=== PATIENT | male | born 1940 | race Hispanic/Latino ===

== ENCOUNTER 2016-07-20 10:51 | Day surgery (SDC) | payer MEDICARE, OTHER ==
[2016-07-20] MEDS ORDERED: NEOFRIN OS ONE (11:36)
[2016-07-20] MEDS ORDERED: MYDRIACYL 1% OS ONE (11:36)
[2016-07-20] MEDS ORDERED: IOPIDINE OS ONE (11:36)
[2016-07-20 12:27] VITALS: BP 126/66
== END 2016-07-20 12:36 | disposition home or self-care (01) ==
LOC: OR 10:51
PROVIDERS: ATTEND Specialist
DX: E11.36 Type 2 diabetes mellitus with diabetic cataract (principal); I25.10 Atherosclerotic heart disease of native coronary artery without angina pectoris; I48.91 Unspecified atrial fibrillation; I10 Essential (primary) hypertension; M19.90 Unspecified osteoarthritis, unspecified site; G47.33 Obstructive sleep apnea (adult) (pediatric); E03.9 Hypothyroidism, unspecified; Z95.5 Presence of coronary angioplasty implant and graft; Z87.891 Personal history of nicotine dependence; Z98.41 Cataract extraction status, right eye; Z98.42 Cataract extraction status, left eye; Z98.890 Other specified postprocedural states; Z85.850 Personal history of malignant neoplasm of thyroid
CPT/HCPCS: 82962